=== PATIENT | female | born 1985 ===

== ENCOUNTER 2022-11-12 08:27 | Outpatient (REF) | payer OTHER, SELFPAY ==
--- NOTE | 2022-11-12 08:33 | EMG_ITS ---
Please see scanned EMG / Nerve Conduction Report. MTDD
== END 2022-11-12 08:28 | disposition home or self-care (01) ==
LOC: HO.NEURO 08:27
PROVIDERS: Visit Provider Internal Medicine
DX: G56.03 Carpal tunnel syndrome, bilateral upper limbs (principal)
CPT/HCPCS: 95885; 95913